=== PATIENT | male | born 1995 | race Caucasian/White ===

== ENCOUNTER 2022-07-20 20:29 | Emergency (ER) | payer OTHER ==
[2022-07-20] MEDS ORDERED: busPIRone HCl 5 MG TAB PO STA (21:19)
[2022-07-20 21:36] VITALS: RESP 18
--- NOTE | 2022-07-20 22:22 | ED ---
General Adult HPI - General Chief complaint: Psychiatric Symptoms Stated complaint: Mental Health Time Seen by Provider: 07/20/22 21:06 Source: patient Mode of arrival: EMS - History of Present Illness Initial comments: This is a 27-year-old male with a past medical history including anxiety and depression presents emergency department with police after he stated that he was suicidal and having a panic attack. It was reported the patient had a lot of anxiety and stress from a new job and he seemed to have a panic attack on his way home from work so he pulled over and called 911. He did state police that he did have thoughts of suicide but stated that he had no intention of treating suicide and only had thoughts which she has from time to time and is normal for him. The patient was petitioned by police and was brought to the emergency department. On arrival, the patient was having intermittent panic attack however was able to answer all questions appropriately. The patient denied any suicidal or homicidal ideation at this time. The patient also denied any auditory or visual hallucinations. The patient was resting in bed comfortably. - Related Data Home Medications Medication Instructions Recorded Confirmed FLUoxetine HCL [PROzac] 10 mg PO DAILY 07/20/22 07/20/22 busPIRone HCl [Buspar] 10 mg PO BID 07/20/22 07/20/22 Allergies Allergy/AdvReac Type Severity Reaction Status Date / Time amoxicillin Allergy Unknown Verified 07/20/22 21:49 Review of Systems ROS Statement: Those systems with pertinent positive or pertinent negative responses have been documented in the HPI. ROS Other: All systems not noted in ROS Statement are negative. General Exam Limitations: no limitations General appearance: alert, in no apparent distress Head exam: Present: atraumatic, normocephalic, normal inspection Eye exam: Present: normal appearance, PERRL Pupils: Present: normal accommodation ENT exam: Present: normal exam, normal oropharynx, mucous membranes moist Neck exam: Present: normal inspection, full ROM Respiratory exam: Present: normal lung sounds bilaterally Cardiovascular Exam: Present: regular rate, normal rhythm, normal heart sounds GI/Abdominal exam: Present: soft, normal bowel sounds Extremities exam: Present: normal inspection, full ROM Back exam: Present: normal inspection, full ROM Neurological exam: Present: alert, oriented X3, CN II-XII intact Psychiatric exam: Present: normal affect, normal mood Skin exam: Present: warm, dry Course Vital Signs 07/20/22 07/20/22 21:30 23:00 Temperature 98.3 F Pulse Rate 66 Respiratory 18 18 Rate Blood Pressure 103/50 O2 Sat by Pulse 98 99 Oximetry Medical Decision Making - Medical Decision Making Was pt. sent in by a medical professional or institution (DARRIN Lizama, INSTITUTION LIBRARIAN, urgent care, hospital, or fdc...) When possible be specific @ -No Did you speak to anyone other than the patient for history (EMS, parent, family, police, friend...)? What history was obtained from this source @ -No Did you review nursing and triage notes (agree or disagree)? Why? @ -I reviewed and agree with nursing and triage notes Were old charts reviewed (outside hosp., previous admission, EMS record, old EKG, old radiological studies, urgent care reports/EKG's, fdc records)? Report findings @ -No old charts were reviewed Differential Diagnosis (chest pain, altered mental status, abdominal pain women, abdominal pain men, vaginal bleeding, weakness, fever, dyspnea, syncope, headache, dizziness, GI bleed, back pain, seizure, CVA, palpatations, mental health)? @ -Suicidal, anxiety, depression EKG interpreted by me (3pts min.). @ -None X-rays interpreted by me (1pt min.). @ -None done CT interpreted by me (1pt min.). @ -None done U/S interpreted by me (1pt. min.). @ -None done What testing was considered but not performed or refused? (CT, X-rays, U/S, labs)? Why? @ -None What meds were considered but not given or refused? Why? @ -None Did you discuss the management of the patient with other professionals (professionals i.e. DARRIN Lizama, INSTITUTION LIBRARIAN, lab, RT, psych nurse, psychologist social, die presser, teacher, corporate development officer, case worker)? Give summary @ -Yes, EPS nurse Was smoking cessation discussed for >3mins.? @ -No Was critical care preformed (if so, how long)? @ -No Were there social determinants of health that impacted care today? How? (Homelessness, low income, unemployed, alcoholism, drug addiction, transportation, low edu. Level, literacy, decrease access to med. care, long term, rehab)? @ -No Was there de-escalation of care discussed even if they declined (Discuss DNR or withdrawal of care, Hospice)? DNR status @ -No What co-morbidities impacted this encounter? (DM, HTN, Smoking, COPD, CAD, Cancer, CVA, ARF, Chemo, Hep., AIDS, mental health diagnosis, sleep apnea, morbid obesity)? @ -Anxiety, depression Was patient admitted / discharged? Hospital course, mention meds given and ro gee, prescriptions, significant lab abnormalities, going to OR and other pertinent info. @ -The patient was seen and evaluated in emergency department. Physical exam, the patient was resting in bed with an intermittent panic attack however was able to speak calmly to me. Vital signs were within normal limits and stable. BAT was 0. The patient was medically cleared. Patient denied suicidal and homicidal thoughts. EPS to evaluate the patient. EPS did evaluate the patient stated the patient could be safely discharged home. The patient had a safety plan established and did have follow-up therefore the patient was stable for discharge home. Both the patient and his mother were agreeable to this plan. The patient had all his questions answered appropriately and was discharged home in stable condition. Undiagnosed new problem with uncertain prognosis? @ -No Drug Therapy requiring intensive monitoring for toxicity (Heparin, Nitro, Insulin, Cardizem)? @ -No Were any procedures done? @ -No Diagnosis/symptom? @ -Anxiety, suicidal ideation Acute, or Chronic, or Acute on Chronic? @ -Acute on chronic Uncomplicated (without systemic symptoms) or Complicated (systemic symptoms)? @ -Uncomplicated Side effects of treatment? @ -No Exacerbation, Progression, or Severe Exacerbation? @ -No Poses a threat to life or bodily function? How? (Chest pain, [place], [place], pneumonia, PE, COPD, DKA, ARF, appy, cholecystitis, CVA, Diverticulitis, Homicidal, Suici carolee, threat to staff... and all critical care pts) @ -No Disposition Clinical Impression: Anxiety, Suicidal behavior Disposition: HOME SELF-CARE Condition: Stable Instructions (If sedation given, give patient instructions): Anxiety (ED), Suicide Prevention (ED) Additional Instructions: Please follow up with your therapist and counselor as well as following the safety plan established. Is patient prescribed a controlled substance at d/c from ED?: No Referrals: None,Stated [Primary Care Provider] - 1-2 days Time of Disposition: 00:10
[2022-07-20 23:01] VITALS: BP 103/50; TEMP 98.3
[2022-07-21 00:36] VITALS: PULSE 70
== END 2022-07-21 00:54 | disposition home or self-care (01) ==
LOC: EC 20:29
DX: R45.851 Suicidal ideations (principal); F41.9 Anxiety disorder, unspecified; Z88.0 Allergy status to penicillin
CPT/HCPCS: 99285